=== PATIENT | male | born 1975 | race Asian ===

== ENCOUNTER 2017-02-18 16:01 | Inpatient (IN) | payer OTHER ==
[~2017-02-18] VITALS: Ht 180.3 cm; Wt 85.7 kg
[2017-02-18] MEDS ORDERED: ASPIRIN 81 MG TABLET CHEW PO ONE (16:30)
[2017-02-18 16:35] LABS: HEMATOCRIT 55.6 % (39.2-51.8); HEMOGLOBIN 19.3 g/dL (13.7-18.0); WHITE BLOOD COUNT 5.7 x10^3/uL (3.4-10)
[2017-02-18 16:48] LABS: BLOOD UREA NITROGEN 15 mg/dL (7-18)
[2017-02-18 16:53] LABS: ASPARTATE AMINO TRANSFERASE 28 U/L (15-37)
[2017-02-18 16:59] LABS: IS PT STATUS REG ER OR PRE ER? YES
[2017-02-18] MEDS ORDERED: ASPIRIN 81 MG TABLET CHEW ONE (17:04)
[2017-02-18] MEDS ORDERED: LOSA25TA5 PO (17:12)
[2017-02-18] MEDS ORDERED: ONDANSETRON 2MG/ML, 2ML IVPush PRN (18:30)
[2017-02-18] MEDS ORDERED: NITROGLYCERIN 0.4 MG BOTTLE (25 TABS) SL PRN (18:30)
[2017-02-18] MEDS ORDERED: morphine SULFATE 10 MG/ML, 1ML IVPush PRN (18:30)
[2017-02-18] MEDS ORDERED: ACETAMINOPHEN 325 MG TABLET PO PRN (18:30)
[2017-02-18] MEDS ORDERED: BISACODYL 10 MG SUPP PR PRN (18:30)
[2017-02-18] MEDS ORDERED: hydrALAzine 20 MG/ML, 1ML IVPush PRN (18:30)
[2017-02-18] MEDS ORDERED: POLYETHYLENE GLYCOL 17 GM PACKET PO PRN (18:30)
[2017-02-18 19:55] VITALS: BP 178/115
[2017-02-18] MEDS: SODIUM CHLORIDE FLUSH 10ML SYR IVF SCH (20:30)
[2017-02-18] MEDS: HEPARIN 5,000 UNITS/ML, 1ML SQ SCH (20:31)
[2017-02-18] MEDS: LOSARTAN 50MG TABLET PO SCH (20:42)
[2017-02-18 23:16] LABS: IS PT STATUS REG ER OR PRE ER? NO
[2017-02-19] MEDS: HEPARIN 5,000 UNITS/ML, 1ML SQ SCH ×3 (02:41→20:43)
[2017-02-19 02:48] VITALS: BP 126/87
[2017-02-19 04:58] LABS: IS PT STATUS REG ER OR PRE ER? NO
[2017-02-19] MEDS: ASPIRIN 81 MG TABLET EC PO SCH (06:04)
[2017-02-19] MEDS ORDERED: REGADENOSON 0.4 MG/5 ML SYRINGE ONE (08:05)
[2017-02-19] MEDS: SODIUM CHLORIDE FLUSH 10ML SYR IVF SCH ×2 (09:00→20:43)
[2017-02-19] MEDS: SENNA/DOCUSATE TABLET PO SCH (09:00)
[2017-02-19 10:21] VITALS: BP 130/77
[2017-02-19] MEDS: LOSARTAN 50MG TABLET PO SCH ×2 (10:51→20:43)
[2017-02-19 14:52] VITALS: BP 127/75
[2017-02-19 19:49] VITALS: BP 152/98
[2017-02-19] MEDS: ATORVASTATIN 80 MG TABLET PO SCH (20:43)
[2017-02-20 01:36] VITALS: BP 135/86
[2017-02-20] MEDS: HEPARIN 5,000 UNITS/ML, 1ML SQ SCH ×3 (05:00→21:21)
[2017-02-20] MEDS ORDERED: SODIUM CHLORIDE 0.9% 1,000 ML IV SCH (06:00)
[2017-02-20] MEDS: ASPIRIN 81 MG TABLET EC PO SCH (06:05)
[2017-02-20] MEDS ORDERED: COLCHICINE 0.6 MG TABLET PO STA (08:12)
[2017-02-20] MEDS: SENNA/DOCUSATE TABLET PO SCH (09:00)
[2017-02-20] MEDS: SODIUM CHLORIDE FLUSH 10ML SYR IVF SCH ×2 (09:00→21:22)
[2017-02-20 09:04] VITALS: BP 148/8
[2017-02-20] MEDS: LOSARTAN 50MG TABLET PO SCH ×2 (10:15→21:21)
[2017-02-20] MEDS ORDERED: MIDAZOLAM 1 MG/ML, 5ML ONE ×2 (11:34→13:44)
[2017-02-20] MEDS ORDERED: VERAPAMIL 2.5 MG/ML, 2ML ONE (11:34)
[2017-02-20] MEDS ORDERED: TICAGRELOR 90 MG TABLET ONE (11:34)
[2017-02-20] MEDS ORDERED: FENTANYL PF 100 MCG/2ML ONE ×2 (11:34→13:44)
[2017-02-20] MEDS ORDERED: NITROGLYCERIN 5 MG/ML, 10ML ONE (11:35)
[2017-02-20] MEDS ORDERED: HEPARIN 1,000 UNITS/ML, 10ML ONE (11:35)
[2017-02-20] MEDS ORDERED: BIVALIRUDIN 250 MG ONE (11:35)
[2017-02-20] MEDS ORDERED: LIDOCAINE 2%, 20ML ONE (11:35)
[2017-02-20 12:45] VITALS: BP 127/81
[2017-02-20] MEDS ORDERED: DIPHENHYDRAMINE 50 MG/ML, 1ML ONE (14:18)
[2017-02-20] MEDS ORDERED: PRASUGREL 10 MG TABLET ONE (14:43)
[2017-02-20] MEDS ORDERED: PRASUGREL 10 MG TABLET PO SCH (15:30)
[2017-02-20] MEDS ORDERED: PRASUGREL 10 MG TABLET PO ONE (16:00)
[2017-02-20 19:26] VITALS: BP 148/85
[2017-02-20] MEDS: ATORVASTATIN 80 MG TABLET PO SCH (21:21)
[2017-02-21 01:47] VITALS: BP 136/81
[2017-02-21 05:38] LABS: BLOOD UREA NITROGEN 17 mg/dL (7-18)
[2017-02-21] MEDS: HEPARIN 5,000 UNITS/ML, 1ML SQ SCH (06:24)
[2017-02-21] MEDS: ASPIRIN 81 MG TABLET EC PO SCH (06:24)
[2017-02-21 07:08] VITALS: BP 145/82
[2017-02-21] MEDS: SODIUM CHLORIDE FLUSH 10ML SYR IVF SCH (09:00)
[2017-02-21] MEDS ORDERED: PRASUGREL 10 MG TABLET PO SCH (09:00)
[2017-02-21] MEDS ORDERED: ALLOPURINOL 100 MG TABLET PO SCH (09:00)
[2017-02-21] MEDS: SENNA/DOCUSATE TABLET PO SCH (09:00)
[2017-02-21] MEDS: LOSARTAN 50MG TABLET PO SCH (09:25)
[2017-02-21] MEDS ORDERED: ASPI-621 PO (11:22)
[2017-02-21] MEDS ORDERED: PRAS10TA4 PO (11:22)
[2017-02-21] MEDS ORDERED: ALLO100T30 PO (11:22)
[2017-02-21] MEDS ORDERED: ATOR-2 PO (11:22)
== END 2017-02-21 13:57 | disposition home or self-care (01) | DRG 247 ==
LOC: ED 17:49 → EDIP 18:05 → 5SO 18:43
PROVIDERS: ADMIT Internal Medicine; ATTEND Internal Medicine
PROC: 027034Z Dilation of Coronary Artery, One Artery with Drug-eluting Intraluminal Device, Percutaneous Approach (ICD-10-PCS; principal; 2017-02-20)
PROC: 4A023N7 Measurement of Cardiac Sampling and Pressure, Left Heart, Percutaneous Approach (ICD-10-PCS; 2017-02-20)
PROC: B2111ZZ Fluoroscopy of Multiple Coronary Arteries using Low Osmolar Contrast (ICD-10-PCS; 2017-02-20)
DX: I25.110 Atherosclerotic heart disease of native coronary artery with unstable angina pectoris (principal); I11.9 Hypertensive heart disease without heart failure; D75.1 Secondary polycythemia; E78.5 Hyperlipidemia, unspecified; M10.9 Gout, unspecified; H40.9 Unspecified glaucoma; Z82.49 Family history of ischemic heart disease and other diseases of the circulatory system; Z87.891 Personal history of nicotine dependence; Z82.3 Family history of stroke; Z79.899 Other long term (current) drug therapy
CPT/HCPCS: 36415; 71020; 78452; 80048; 80053; 80061; 84439; 84443; 84484; 85025; 93005; 93017; 93454; 99156; 99157; 99285; C1760; C1769; C1894; C9600; J0583; J1644; J2250; J2785; J3010; J3490; A9502; C1725; C1874; C1887; C9898; J0360; J1200; J7030; Q9967

== ENCOUNTER → 2018-08-12 | Outpatient (CLI) | payer OTHER ==
[~2018-08-12] MED LIST: ALLO100T30 PO; ASPI81TA45 PO; ATOR-2 PO; LOSA25TA25 PO; PRAS10TA4 PO
== END | disposition home or self-care (01) ==
LOC: CFH 08:13
PROVIDERS: ATTEND Internal Medicine Cardiovascular Disease
DX: Z48.812 Encounter for surgical aftercare following surgery on the circulatory system (principal); I25.10 Atherosclerotic heart disease of native coronary artery without angina pectoris; Z98.61 Coronary angioplasty status; Z87.891 Personal history of nicotine dependence
CPT/HCPCS: 78452; 93017; A9502